=== PATIENT | female | born 1980 | race Caucasian/White ===

== ENCOUNTER 2019-02-22 05:04 | Emergency (ER) | payer OTHER ==
[~2019-02-22] VITALS: Ht 160 cm; Wt 65.8 kg
[2019-02-22] MEDS ORDERED: EUTHYROX137 MCG PO (05:21)
[2019-02-22 05:31] LABS: URINE BILIRUBIN NEGATIVE (Negative); URINE BLOOD NEGATIVE (Negative); URINE CLARITY CLEAR; URINE COLOR YELLOW; URINE GLUCOSE-RANDOM NEGATIVE (Negative); URINE KETONES NEGATIVE (Negative); URINE LEUKOCYTES-REFLEX NEGATIVE (Negative); URINE NITRITE-REFLEX NEGATIVE (Negative); URINE PROTEIN NEGATIVE (Negative); URINE SPECIFIC GRAVITY >= 1.030 (1.005-1.030); URINE UROBILINOGEN 0.2 E.U./dl (0.2-1.0)
[2019-02-22] MEDS ORDERED: FLAGYL500 M1 PO (05:50)
[2019-02-22] MEDS ORDERED: CIPROFLOXACIN500 M1 PO (06:00)
[2019-02-22] MEDS ORDERED: TRAMADOL 50 MG50 MG PO (06:00)
[2019-02-22 06:56] VITALS: BP 125/83
== END 2019-02-22 06:56 | disposition home or self-care (01) ==
LOC: M.ERS 05:04
PROVIDERS: Emergency Medicine
DX: N76.0 Acute vaginitis (principal); E03.9 Hypothyroidism, unspecified